=== PATIENT | female | born 1960 | race Caucasian/White ===

== ENCOUNTER → 2016-12-15 | Outpatient (CLI) | payer BC ==
--- NOTE | 2016-12-15 17:18 | PCVCIMAG ---
APPROVED REPORT Study performed: 12/15/2016 15:14:10 EXAM: Comprehensive 2D, Doppler, and color-flow Echocardiogram Patient Location: Echo lab Status: routine BSA: 1.57 Rhythm: NSR Other Information Study Quality: Technically Limited Indications Abnormal ECG Hypotension Elevated Troponin 2D Dimensions LVEF(%): 81.67 (>50%) IVSd: 7.47 (7-11mm)LVOT Diam: 15.89 (18-24mm) LVDd: 38.86 mm PWd: 5.78 (7-11mm)Ascending Ao: 32.84 (22-36mm) LVDs: 19.53 (25-40mm) Left Atrium: 26.83 (27-40mm) Aortic Root: 31.51 mm Crandall's LVEF: 81.67 % Volumes Left Atrial Volume (Systole) Single Plane 4CH: 12.93 mL Aortic Valve AoV Peak Nigel.: 1.16 m/s AO Peak Gr.: 5.42 mmHg Mitral Valve E/A Ratio: 0.9 MV E Max Nigel.: 0.99 m/s MV A Nigel.: 1.10 m/s Pulmonary Valve PV Peak Gr.: 2.53 mmHg Tricuspid Valve TR Peak Nigel.: 2.19 m/s TR Peak Gr.: 19.21 mmHg Left Ventricle The left ventricle is normal size. There is normal LV segmental wall motion. There is normal left ventricular wall thickness. Left ventricular systolic function is normal. The left ventricular ejection fraction is within the normal range. The left ventricular diastolic function is normal. Right Ventricle The right ventricle is normal size. The right ventricular systolic function is normal. Atria The left atrium size is normal. The right atrium size is normal. Aortic Valve The aortic valve is normal in structure. No aortic regurgitation is present. There is no aortic valvular stenosis. Mitral Valve mild prolapse There is no mitral valve regurgitation noted. No evidence of mitral valve stenosis. Mild myoxomatous mitral valve. Mild prolapse the anterior leaflet. Tricuspid Valve The tricuspid valve is normal in structure. Mild tricuspid regurgitation. Pulmonary artery pressure is 27mmhg. Pulmonic Valve The pulmonary valve is normal in structure. Trace pulmonic regurgitation. Great Vessels The aortic root is normal in size. IVC is normal in size and collapses with >50% inspiration Pericardium There is no pericardial effusion. <Conclusion> The left ventricle is normal size. Left ventricular systolic function is normal. The left ventricular ejection fraction is within the normal range. The left ventricular diastolic function is normal. The right ventricle is normal size. The left atrium size is normal. The aortic valve is normal in structure. mild prolapse There is no mitral valve regurgitation noted. Mild tricuspid regurgitation. Pulmonary artery pressure is 27mmhg. There is no pericardial effusion.
== END | disposition home or self-care (01) ==
LOC: PCVCIMAG 15:10
PROVIDERS: ATTEND Internal Medicine Cardiovascular Disease
DX: I07.1 Rheumatic tricuspid insufficiency (principal); I37.1 Nonrheumatic pulmonary valve insufficiency; I48.0 Paroxysmal atrial fibrillation; E78.01 Familial hypercholesterolemia; M81.0 Age-related osteoporosis without current pathological fracture; Z82.49 Family history of ischemic heart disease and other diseases of the circulatory system; Z90.710 Acquired absence of both cervix and uterus; Z79.82 Long term (current) use of aspirin; Z79.899 Other long term (current) drug therapy; Z88.5 Allergy status to narcotic agent; Z88.1 Allergy status to other antibiotic agents
CPT/HCPCS: 80061; 93306; G0463

== ENCOUNTER → 2018-05-28 | Outpatient (CLI) | payer BC, OTHER ==
--- NOTE | 2018-05-28 17:11 | PCVCIMAG ---
APPROVED REPORT Study performed: 05/28/2018 14:25:10 EXAM: Comprehensive 2D, Doppler, and color-flow Echocardiogram Patient Location: Echo lab Status: routine BSA: 1.58 HR: 67 bpmBP: 124/86 mmHg Rhythm: NSR Other Information Study Quality: Adequate Indications Mitral Valve Prolapse parox a fib 2D Dimensions IVSd: 7.57 (7-11mm) LVDd: 35.63 mm PWd: 9.01 (7-11mm)Ascending Ao: 35.30 (22-36mm) LVDs: 22.42 (25-40mm) Left Atrium: 30.40 (27-40mm) Aortic Root: 33.03 mm LV Single Plane 4CH: 65.89 % LV Single Plane 2CH: 57.03 % Biplane EF: 62.7 % Volumes Left Atrial Volume (Systole) Single Plane 4CH: 34.51 mLSingle Plane 2CH: 53.20 mL LA ESV Index: 28.00 mL/m2 Aortic Valve AoV Peak Nigel.: 1.26 m/s AO Peak Gr.: 6.31 mmHgLVOT Max P.75 mmHg LVOT Max V: 1.09 m/s Mitral Valve E/A Ratio: 1.8 MV Decel. Time: 231.86 ms MV E Max Nigel.: 1.12 m/s MV A Nigel.: 0.63 m/s IVRT: 76.12 ms Pulmonary Valve PV Peak Nigel.: 0.80 m/sPV Peak Gr.: 2.56 mmHg Pulmonary Vein P Vein S: 0.30 m/sP Vein A: 0.35 m/s P Vein D: 0.40 m/sP Vein A Dur.: 121.1 msec P Vein S/D Ratio: 0.75 Tricuspid Valve TR Peak Nigel.: 2.11 m/s TR Peak Gr.: 17.74 mmHg TV Vmax: 0.61 m/s Left Ventricle The left ventricle is normal size. There is normal LV segmental wall motion. There is normal left ventricular wall thickness. Left ventricular systolic function is normal. The left ventricular ejection fraction is within the normal range. LVEF is 60%. Grade II - pseudonormal filling dynamics. Right Ventricle The right ventricle is normal size. The right ventricular systolic function is normal. Atria The left atrium size is normal. The right atrium size is normal. Aortic Valve The aortic valve is normal in structure. Mild aortic regurgitation. There is no aortic valvular stenosis. Mitral Valve Mild anterior mitral valve prolapse. Mild mitral regurgitation. No evidence of mitral valve stenosis. Tricuspid Valve The tricuspid valve is normal in structure. Trace tricuspid regurgitation with PAP of 28 mmHg. Pulmonic Valve The pulmonary valve is normal in structure. Moderate pulmonic regurgitation. Great Vessels The aortic root is normal in size. IVC is normal in size and collapses >50% with inspiration. Pericardium There is no pericardial effusion. There is no pleural effusion. <Conclusion> The left ventricle is normal size. LVEF is 60%. Grade II - pseudonormal filling dynamics. The right ventricle is normal size. The left atrium size is normal. Mild aortic regurgitation. Mild anterior mitral valve prolapse. Mild mitral regurgitation. Trace tricuspid regurgitation with PAP of 28 mmHg. The aortic root is normal in size. There is no pericardial effusion.
== END | disposition home or self-care (01) ==
LOC: PCVCIMAG 14:37
PROVIDERS: ATTEND Internal Medicine Cardiovascular Disease
DX: I08.0 Rheumatic disorders of both mitral and aortic valves (principal); I48.0 Paroxysmal atrial fibrillation
CPT/HCPCS: 93306